=== PATIENT | male | born 1990 | race American Indian/Alaskan Native ===

== ENCOUNTER 2021-08-14 16:41 | Emergency (ER) | payer SELFPAY ==
[2021-08-14 18:02] VITALS: BP 118/79
--- NOTE | 2021-08-14 21:45 | Emergency Department Report ---
ED General Adult HPI - General Chief complaint: Fever Stated complaint: SICK Time Seen by Provider: 08/14/21 21:23 Source: patient Mode of arrival: Ambulatory Limitations: No Limitations - History of Present Illness Initial comments: Patient presents for URI symptoms concern for positive Covid contact sister has Covid. Patient states cough productive white thick. Mild malaise and fever. No fever noted in triage today. There is no respiratory distress has been no wheezing no nausea no vomiting patient is tolerating p.o. intake without problems. He states symptoms are exacerbated by activity. Symptoms are relieved by nothing tried. - Related Data Previous Rx's Medication Instructions Recorded Last Taken Type Amoxicillin [Trimox CAP] 500 mg PO Q8H #21 capsule 07/09/15 Unknown Rx traMADoL [Ultram 50 MG tab] 50 mg PO Q6HR PRN #21 tablet 07/09/15 Unknown Rx Albuterol Mdi (or & Nicu Only) 2 puff IH QID PRN #8.5 gram 08/14/21 Unknown Rx [ProAir HFA Inhaler] Azithromycin 500 mg PO DAILY 5 Days #5 tablet 08/14/21 Unknown Rx Guaifenesin/Pseudoephedrne HCl 1 tab PO BID PRN #24 tab 08/14/21 Unknown Rx [Mucinex D ER 1,200-120 mg Tab] Ibuprofen [Motrin 800 MG tab] 800 mg PO Q8HR PRN #30 tablet 08/14/21 Unknown Rx Allergies Allergy/AdvReac Type Severity Reaction Status Date / Time No Known Allergies Allergy Verified 09/08/14 19:56 ED Review of Systems ROS: Stated complaint: SICK Other details as noted in HPI Constitutional: chills, fever, malaise Eyes: denies: eye pain, eye discharge, vision change ENT: congestion. denies: ear pain, throat pain Respiratory: cough. denies: shortness of breath, wheezing Cardiovascular: denies: chest pain, palpitations Endocrine: no symptoms reported Gastrointestinal: denies: abdominal pain, nausea, vomiting, diarrhea Genitourinary: denies: urgency, dysuria Musculoskeletal: denies: back pain, joint swelling, arthralgia Skin: denies: rash, lesions Neurological: denies: headache, weakness, paresthesias, vertigo Psychiatric: denies: anxiety, depression Hematological/Lymphatic: denies: easy bleeding, easy bruising ED Past Medical Hx - Surgical History Additional Surgical History: eye surgery? - Social History Smoking Status: Never Smoker Substance Use Type: None - Medications Home Medications: Home Medications Medication Instructions Recorded Confirmed Last Taken Type Amoxicillin [Trimox CAP] 500 mg PO Q8H #21 capsule 07/09/15 Unknown Rx traMADoL [Ultram 50 MG tab] 50 mg PO Q6HR PRN #21 tablet 07/09/15 Unknown Rx Albuterol Mdi (or & Nicu Only) 2 puff IH QID PRN #8.5 gram 08/14/21 Unknown Rx [ProAir HFA Inhaler] Azithromycin 500 mg PO DAILY 5 Days #5 tablet 08/14/21 Unknown Rx Guaifenesin/Pseudoephedrne HCl 1 tab PO BID PRN #24 tab 08/14/21 Unknown Rx [Mucinex D ER 1,200-120 mg Tab] Ibuprofen [Motrin 800 MG tab] 800 mg PO Q8HR PRN #30 tablet 08/14/21 Unknown Rx ED Physical Exam - General Limitations: No Limitations General appearance: alert, in no apparent distress - Head Head exam: Present: atraumatic, normocephalic - Eye Eye exam: Present: normal appearance, EOMI Pupils: Present: normal accommodation - ENT ENT exam: Present: mucous membranes moist - Neck Neck exam: Present: normal inspection, full ROM. Absent: tenderness - Respiratory Respiratory exam: Present: normal lung sounds bilaterally. Absent: respiratory distress, wheezes, rales, rhonchi, stridor, chest wall tenderness, prolonged expiratory - Cardiovascular Cardiovascular Exam: Present: regular rate, normal rhythm, normal heart sounds. Absent: systolic murmur, diastolic murmur, rubs, gallop - GI/Abdominal GI/Abdominal exam: Present: soft, normal bowel sounds. Absent: distended, tenderness, bruit, hernia - Rectal Rectal exam: Present: deferred - exam: Present: normal inspection - Extremities Exam Extremities exam: Present: normal inspection, full ROM, normal capillary refill. Absent: tenderness - Back Exam Back exam: Present: normal inspection, full ROM. Absent: CVA tenderness (R), CVA tenderness (L) - Neurological Exam Neurological exam: Present: alert, CN II-XII intact, normal gait - Expanded Neurological Exam Expanded Patient oriented to: Present: person, place Motor strength exam: RUE: 5, LUE: 5, RLE: 5, LLE: 5 Best Eye Response ([place]): (4) open spontaneously Best Motor Response (Radha): (6) obeys commands Best Verbal Response (Radha): (5) oriented [place] Total: 15 - Psychiatric Psychiatric exam: Present: normal affect, normal mood - Skin Skin exam: Present: warm ED Course Vital Signs 08/14/21 17:59 Temperature 98.1 F Pulse Rate 74 Respiratory 18 Rate Blood Pressure 118/79 O2 Sat by Pulse 99 Oximetry ED Medical Decision Making - Radiology Data Radiology results: report reviewed, image reviewed Chest x-ray no infiltrates no opacities. - Medical Decision Making Chest x-ray no infiltrates no opacities plan diagnosis URI, discharged home, [id number] decongestants and NSAIDs as needed. Hydrate as directed. Follow-up with your doctor in 2 to 3 days. Return to emergency department should symptoms worsen. Quarantine for 5 days as directed mask after that f ollow-up with your primary care doctor Critical care attestation.: If time is entered above; I have spent that time in minutes in the direct care of this critically ill patient, excluding procedure time. ED Disposition Clinical Impression: Person under investigation for COVID-19 Disposition: HOME / SELF CARE / HOMELESS Is pt being admited?: No Does the pt Need Aspirin: No Condition: Stable Instructions: COVID-19: How to Protect Yourself and Others - [facility] Additional Instructions: Take medications as prescribed, hydrate as directed clear. Follow-up with your doctor in 2 to 3 days. Prescriptions: Azithromycin 500 mg PO DAILY 5 Days #5 tablet Ibuprofen [Motrin 800 MG tab] 800 mg PO Q8HR PRN #30 tablet PRN Reason: pain fever Guaifenesin/Pseudoephedrne HCl [Mucinex D ER 1,200-120 mg Tab] 1 tab PO BID PRN #24 tab PRN Reason: cough congestion Albuterol Mdi (or & Nicu Only) [ProAir HFA Inhaler] 2 puff IH QID PRN #8.5 gram PRN Reason: Shortness Of Breath Referrals: LEYLA HUGGINS MD [Staff Physician] - 3-5 Days Forms: Work/School Release Form(ED) Time of Disposition: 21:47
--- NOTE | 2021-08-14 21:45 | XRay Report ---
CHEST 2 VIEWS INDICATION: cough fever. COMPARISON: None FINDINGS: SUPPORT DEVICES: None. HEART: Within normal limits. LUNGS/PLEURA: Minimal patchy left basilar airspace disease. Otherwise clear lungs. No pneumothorax. ADDITIONAL FINDINGS: None. IMPRESSION: 1. Lung findings as above. Signer Name: Huber Gauthier MD Signed: 08/14/2021 9:40 PM Workstation Name: [id number]
== END 2021-08-14 22:47 | disposition home or self-care (01) ==
LOC: ED 16:41
DX: R50.9 Fever, unspecified (principal); R53.81 Other malaise; Z20.822 Contact with and (suspected) exposure to COVID-19
CPT/HCPCS: 71046; 99283